=== PATIENT | male | born 1955 | race Caucasian/White ===

== ENCOUNTER 2017-08-24 10:33 | Emergency (ER) | payer BC, OTHER ==
[2017-08-24 10:59] LABS: BASOPHILS % (AUTO) 0.9 % (0.0-5.0); EOSINOPHILS % (AUTO) 4.4 % (0.0-8.0); HEMATOCRIT 38.7 % (42-54); LYMPHOCYTES % (AUTO) 22.8 % (21.0-51.0); MEAN CORPUSCULAR HEMOGLOBIN 30.6 pg (27.0-33.0); MEAN CORPUSCULAR HGB CONC 35.4 g/dL (32.0-36.0); MEAN CORPUSCULAR VOLUME 86.4 fL (79-99); MONOCYTES % (AUTO) 8.3 % (3.0-13.0); NEUTROPHILS % (AUTO) 63.6 % (40.0-77.0); NUCLEATED RED BLOOD CELLS 0.1 % (0.0-0.19); PLATELET COUNT (AUTO) 275 K/uL (130-400); RED BLOOD CELL COUNT(AUTO) 4.48 MIL/uL (4.50-6.20); RED CELL DISTRIBUTION WIDTH 13.5 % (11.0-15.5); WHITE BLOOD COUNT (AUTO) 6.1 K/uL (4.8-10.8)
[2017-08-24 11:16] LABS: ALBUMIN 4.1 g/dL (3.5-5.0); BILIRUBIN,TOTAL 0.5 mg/dL (0.2-1.0); TOTAL PROTEIN, SERUM 7.6 g/dL (6.0-8.3)
[2017-08-24 11:38] LABS: INR 0.97 (0.85-1.15); PARTIAL THROMBOPLASTIN TIME 26.4 SEC (26.3-35.5); PROTHROMBIN TIME 10.2 SEC (9.6-11.6)
[2017-08-24] MEDS ORDERED: IOPAMIDOL-370 75 ML VIAL IV ONE (12:16)
[2017-08-24] MEDS ORDERED: DiphenhydrAMINE HCL 50 MG/ML VIAL ONE (12:18)
[2017-08-24] MEDS ORDERED: METOCLOPRAMIDE 10 MG/2 ML VIAL ONE (12:18)
[2017-08-24] MEDS ORDERED: ONDANSETRON HCL 4 MG/2 ML VIAL ONE (12:18)
[2017-08-24] MEDS ORDERED: SODIUM CHLORIDE 0.9% 100 ML IV ONE (12:21)
[2017-08-24] MEDS ORDERED: CLONIDINE HCL 0.1 MG TABLET ONE (14:15)
== END 2017-08-24 15:43 | disposition home or self-care (01) ==
LOC: EDH 10:33
DX: I16.9 Hypertensive crisis, unspecified (principal); G89.29 Other chronic pain; R51 Headache; E78.5 Hyperlipidemia, unspecified; Z85.46 Personal history of malignant neoplasm of prostate; Z87.891 Personal history of nicotine dependence
CPT/HCPCS: 36415; 70470; 80053; 84484; 85025; 85610; 85730; 93005; 96374; 96375; 99285; J1200; J2405; J2765; Q9967

== ENCOUNTER 2017-08-29 16:41 | Emergency (ER) | payer OTHER ==
[2017-08-29 16:58] LABS: BASOPHILS % (AUTO) 0.2 % (0.0-5.0); HEMATOCRIT 38.7 % (42-54); LYMPHOCYTES % (AUTO) 7.2 % (21.0-51.0); MEAN CORPUSCULAR HEMOGLOBIN 31.1 pg (27.0-33.0); MEAN CORPUSCULAR HGB CONC 36.2 g/dL (32.0-36.0); MEAN CORPUSCULAR VOLUME 86.1 fL (79-99); MONOCYTES % (AUTO) 6.1 % (3.0-13.0); NEUTROPHILS % (AUTO) 86.5 % (40.0-77.0); NUCLEATED RED BLOOD CELLS 0.1 % (0.0-0.19); PLATELET COUNT (AUTO) 376 K/uL (130-400); RED CELL DISTRIBUTION WIDTH 13.5 % (11.0-15.5); WHITE BLOOD COUNT (AUTO) 16.4 K/uL (4.8-10.8)
[2017-08-29 17:08] LABS: CREATININE 1.1 mg/dL (0.5-1.5)
[2017-08-29 17:10] LABS: INR 0.95 (0.85-1.15); PARTIAL THROMBOPLASTIN TIME 23.8 SEC (26.3-35.5)
[2017-08-29 17:14] LABS: ALBUMIN 4.2 g/dL (3.5-5.0); BILIRUBIN,TOTAL 0.2 mg/dL (0.2-1.0); TOTAL PROTEIN, SERUM 7.6 g/dL (6.0-8.3)
[2017-08-29] MEDS ORDERED: NIFEDIPINE ER 30 MG TAB PO ONE (17:23)
[2017-08-29] MEDS ORDERED: HYDRALAZINE HCL 20 MG/ML VIAL ONE (18:36)
== END 2017-08-29 19:44 | disposition home or self-care (01) ==
LOC: EDH 16:41
DX: I16.0 Hypertensive urgency (principal); E78.5 Hyperlipidemia, unspecified; Z85.46 Personal history of malignant neoplasm of prostate
CPT/HCPCS: 36415; 71045; 80053; 84484; 85025; 85610; 85730; 93005; 96374; 99285; J0360

== ENCOUNTER 2020-07-29 20:33 | Emergency (ER) | payer MEDICARE, OTHER ==
[~2020-07-29 20:33] MED LIST: ALLO100T PO; BUDE0.5A3 IH; CETI10TA57 PO; GEMF600T5 PO; HYDR25TA PO; IBUP-2077 PO; IPRA3AMP24 IH; LEVO500T2 PO; LOSA50TA64 PO; MONT10TA21 PO; NIFE30TA98 PO; OMEP40CA13 PO; PRED50TA2 PO; TRAM50TA4 PO
[2020-07-29 21:07] LABS: BASOPHILS % (AUTO) 0.6 % (0.0-5.0); EOSINOPHILS % (AUTO) 4.7 % (0.0-8.0); HEMATOCRIT 37.2 % (42-54); LYMPHOCYTES % (AUTO) 24.7 % (21.0-51.0); MEAN CORPUSCULAR HEMOGLOBIN 29.5 pg (27.0-33.0); MEAN CORPUSCULAR HGB CONC 34.1 g/dL (32.0-36.0); MEAN CORPUSCULAR VOLUME 86.5 fL (79-99); MONOCYTES % (AUTO) 7.8 % (3.0-13.0); NEUTROPHILS % (AUTO) 61.6 % (40.0-77.0); PLATELET COUNT (AUTO) 255 K/uL (130-400); RED CELL DISTRIBUTION WIDTH 12.7 % (11.0-15.5); WHITE BLOOD COUNT (AUTO) 6.3 K/uL (4.8-10.8)
[2020-07-29 21:07] LABS: APPEARANCE,URINE Clear (CLEAR); BILIRUBIN,URINE Negative (NEGATIVE); COLOR,URINE Yellow (YELLOW); GLUCOSE, URINE (UA) Negative (NEGATIVE); KETONES,URINE Negative (NEGATIVE); LEUKOCYTE ESTERASE ,URINE Negative (NEGATIVE); NITRATE,URINE Negative (NEGATIVE); OCCULT BLOOD,URINE Negative (NEGATIVE); PH,URINE 5.5 (5.0-8.0); PROTEIN,URINE Negative (NEGATIVE); UROBILINOGEN,URINE 0.2 mg/dL (0.2-1.0)
[2020-07-29 21:19] LABS: PROTHROMBIN TIME 10.7 SEC (9.6-11.6)
[2020-07-29 21:20] LABS: CREATININE 1.2 mg/dL (0.5-1.5); POTASSIUM 3.6 mmol/L (3.5-5.1)
[2020-07-29 21:29] LABS: ALBUMIN 3.7 g/dL (3.5-5.0); B-TYPE NATRIURETIC PEPTIDE 17 pg/mL (0-100); BILIRUBIN,DIRECT 0.1 mg/dL (0.0-0.3); BILIRUBIN,TOTAL 0.3 mg/dL (0.2-1.0)
== END 2020-07-29 22:10 | disposition home or self-care (01) ==
LOC: EDH 20:33
DX: G44.229 Chronic tension-type headache, not intractable (principal); J44.9 Chronic obstructive pulmonary disease, unspecified; E78.5 Hyperlipidemia, unspecified; I10 Essential (primary) hypertension; Z90.49 Acquired absence of other specified parts of digestive tract; Z79.899 Other long term (current) drug therapy; Z87.891 Personal history of nicotine dependence; Z20.828 Contact with and (suspected) exposure to other viral communicable diseases
CPT/HCPCS: 36415; 71045; 80053; 80076; 81003; 83880; 84484; 85025; 85610; 85730; 87426; 93005; 99284; U0003

== ENCOUNTER 2021-07-12 17:15 | Inpatient (IN) | payer OTHER ==
[~2021-07-12] VITALS: Ht 190.5 cm; Wt 140.0 kg
[~2021-07-12 17:15] MED LIST changes: -GEMF600T5 PO; +GEMF600T89 PO; -OMEP40CA13 PO; +OMEP40CA21 PO
[2021-07-12 17:38] LABS: BASOPHILS % (AUTO) 0.6 % (0.0-5.0); EOSINOPHILS % (AUTO) 2.9 % (0.0-8.0); HEMATOCRIT 37.1 % (42-54); MEAN CORPUSCULAR HEMOGLOBIN 29.8 pg (27.0-33.0); MEAN CORPUSCULAR HGB CONC 33.7 g/dL (32.0-36.0); MEAN CORPUSCULAR VOLUME 88.3 fL (79-99); MONOCYTES % (AUTO) 7.5 % (3.0-13.0); NEUTROPHILS % (AUTO) 68.5 % (40.0-77.0); PLATELET COUNT (AUTO) 271 K/uL (130-400); RED CELL DISTRIBUTION WIDTH 12.5 % (11.0-15.5); WHITE BLOOD COUNT (AUTO) 8.3 K/uL (4.8-10.8)
[2021-07-12 17:39] LABS: APPEARANCE,URINE Clear (CLEAR); BILIRUBIN,URINE Negative (NEGATIVE); COLOR,URINE Yellow (YELLOW); GLUCOSE, URINE (UA) Negative (NEGATIVE); KETONES,URINE Negative (NEGATIVE); LEUKOCYTE ESTERASE ,URINE Negative (NEGATIVE); NITRATE,URINE Negative (NEGATIVE); OCCULT BLOOD,URINE Negative (NEGATIVE); PROTEIN,URINE Negative (NEGATIVE); UROBILINOGEN,URINE 0.2 mg/dL (0.2-1.0)
[2021-07-12 17:53] LABS: CREATININE 1.3 mg/dL (0.5-1.5)
[2021-07-12 17:58] LABS: ALBUMIN 4.4 g/dL (3.5-5.0); BILIRUBIN,TOTAL 0.3 mg/dL (0.2-1.0); TOTAL PROTEIN, SERUM 7.7 g/dL (6.0-8.3)
[2021-07-12] MEDS ORDERED: 0.9%NACL 1000ML 1,000 ML IV ONE ×2 (18:00→20:30)
[2021-07-12] MEDS ORDERED: ONDANSETRON 4MG INJ IVP ONE ×2 (18:00→20:30)
[2021-07-12] MEDS ORDERED: MORPHINE 4 MG SYG IVP ONE (18:00)
[2021-07-12] MEDS ORDERED: FAMOTIDINE 20MG TAB PO ONE (18:00)
[2021-07-12] MEDS ORDERED: ONDANSETRON 4MG INJ ONE ×2 (18:01→20:25)
[2021-07-12] MEDS ORDERED: FAMOTIDINE 20MG TAB ONE (18:01)
[2021-07-12] MEDS ORDERED: MORPHINE 4 MG SYG ONE (18:01)
[2021-07-12] MEDS ORDERED: LIDOCAINE HCL 2% JELLY 5 ML ONE (20:25)
[2021-07-12] MEDS ORDERED: LORAZEPAM 2 MG/ML 1 ML VIAL ONE (20:26)
[2021-07-12] MEDS ORDERED: ONDANSETRON 4MG INJ IV PRN (20:30)
[2021-07-12] MEDS ORDERED: FENTANYL CITRATE PF 50 MCG/1 ML 2ML VIAL IVP ONE (20:30)
[2021-07-12] MEDS ORDERED: LIDOCAINE HCL 2% JELLY 5 ML TP ONE (20:30)
[2021-07-12] MEDS ORDERED: LACTATED RINGERS 1000ML 1,000 ML IV SCH (20:30)
[2021-07-12] MEDS ORDERED: LORAZEPAM 2 MG/ML 1 ML VIAL IVP ONE (20:30)
[2021-07-12] MEDS: FAMOTIDINE 20MG VIAL IV SCH (21:16)
[2021-07-13 05:37] LABS: BASOPHILS % (AUTO) 0.5 % (0.0-5.0); EOSINOPHILS % (AUTO) 0.9 % (0.0-8.0); HEMATOCRIT 36.2 % (42-54); LYMPHOCYTES % (AUTO) 14.2 % (21.0-51.0); MEAN CORPUSCULAR HEMOGLOBIN 29.7 pg (27.0-33.0); MEAN CORPUSCULAR HGB CONC 34.8 g/dL (32.0-36.0); MEAN CORPUSCULAR VOLUME 85.4 fL (79-99); MONOCYTES % (AUTO) 5.3 % (3.0-13.0); NEUTROPHILS % (AUTO) 78.7 % (40.0-77.0); PLATELET COUNT (AUTO) 267 K/uL (130-400); RED BLOOD CELL COUNT(AUTO) 4.24 MIL/uL (4.50-6.20); RED CELL DISTRIBUTION WIDTH 12.4 % (11.0-15.5); WHITE BLOOD COUNT (AUTO) 10.9 K/uL (4.8-10.8)
[2021-07-13 05:52] LABS: INR 1.01 (0.85-1.15)
[2021-07-13 05:53] LABS: MAGNESIUM 2.1 mg/dL (1.80-2.40); PHOSPHORUS 3.9 mg/dL (2.5-4.9); POTASSIUM 3.9 mmol/L (3.5-5.1)
[2021-07-13 05:54] LABS: PARTIAL THROMBOPLASTIN TIME 27.3 SEC (26.3-35.5)
[2021-07-13 05:55] VITALS: BP 184/76
[2021-07-13 08:00] VITALS: BP 125/62
[2021-07-13] MEDS: FAMOTIDINE 20MG VIAL IV SCH ×2 (11:01→20:36)
[2021-07-13 12:00] VITALS: BP 152/70
[2021-07-13 16:00] VITALS: BP 165/78
[2021-07-13] MEDS: ALLOPURINOL 100 MG TABLET PO SCH (16:30)
[2021-07-13] MEDS: NIFEDIPINE ER 30 MG TAB PO SCH (16:30)
[2021-07-13 19:30] VITALS: BP 158/61
[2021-07-13] MEDS ORDERED: MONTELUKAST SODIUM 10 MG TAB PO SCH (21:00)
[2021-07-13 23:05] VITALS: BP 143/74
[2021-07-14 03:41] VITALS: BP 145/57
[2021-07-14 04:20] LABS: HEMATOCRIT 33.2 % (42-54); MEAN CORPUSCULAR HEMOGLOBIN 29.3 pg (27.0-33.0); MEAN CORPUSCULAR HGB CONC 33.1 g/dL (32.0-36.0); MEAN CORPUSCULAR VOLUME 88.3 fL (79-99); RED BLOOD CELL COUNT(AUTO) 3.76 MIL/uL (4.50-6.20); RED CELL DISTRIBUTION WIDTH 12.3 % (11.0-15.5); WHITE BLOOD COUNT (AUTO) 8.2 K/uL (4.8-10.8)
[2021-07-14 04:27] LABS: POTASSIUM 3.8 mmol/L (3.5-5.1)
[2021-07-14 08:00] VITALS: BP 149/60
[2021-07-14] MEDS ORDERED: PANTOPRAZOLE 40 MG TAB DR PO SCH (09:00)
[2021-07-14] MEDS: FAMOTIDINE 20MG VIAL IV SCH (09:50)
[2021-07-14] MEDS: ALLOPURINOL 100 MG TABLET PO SCH (09:50)
[2021-07-14] MEDS: NIFEDIPINE ER 30 MG TAB PO SCH (09:51)
== END 2021-07-14 12:10 | disposition home or self-care (01) | DRG 389 ==
LOC: EDH 17:15 → EDHIP 20:16 → 3AH 07-13 04:51
PROVIDERS: ADMIT Hospitalist; ATTEND Hospitalist
PROC: 0D9670Z Drainage of Stomach with Drainage Device, Via Natural or Artificial Opening (ICD-10-PCS; principal; 2021-07-13)
DX: K56.609 Unspecified intestinal obstruction, unspecified as to partial versus complete obstruction (principal); E87.1 Hypo-osmolality and hyponatremia; C79.89 Secondary malignant neoplasm of other specified sites; I10 Essential (primary) hypertension; J44.9 Chronic obstructive pulmonary disease, unspecified; E78.2 Mixed hyperlipidemia; Z53.20 Procedure and treatment not carried out because of patient's decision for unspecified reasons; Z85.46 Personal history of malignant neoplasm of prostate; Z87.891 Personal history of nicotine dependence; Z90.49 Acquired absence of other specified parts of digestive tract
CPT/HCPCS: 36415; 74018; 74176; 80048; 80053; 81003; 82150; 82550; 83605; 83690; 83735; 84100; 84484; 85025; 85027; 85610; 85730; 86850; 86900; 86901; 93005; G0378; J2060; J2270; J2405; J3010; J3490

== ENCOUNTER 2023-12-12 09:47 | Emergency (ER) | payer OTHER ==
[~2023-12-12] VITALS: Ht 188 cm; Wt 118.8 kg
[~2023-12-12 09:47] MED LIST changes: -BUDE0.5A3 IH; -CETI10TA57 PO; -HYDR25TA PO; -IBUP-2077 PO; -IPRA3AMP24 IH; -LEVO500T2 PO; -LOSA50TA64 PO; +MONT-46 PO; -MONT10TA21 PO; +NIFE-78 PO; -NIFE30TA98 PO; -PRED50TA2 PO
[2023-12-12 10:04] VITALS: BP 128/53; PULSE 52; RESP 18; O2SAT 99
[2023-12-12] MEDS: TRAMADOL HCL 50 MG TABLET PO ONE (10:22)
== END 2023-12-12 11:08 | disposition home or self-care (01) ==
LOC: EDH 09:47
DX: M25.552 Pain in left hip (principal)
CPT/HCPCS: 73522